=== PATIENT | female | born 1980 | race Two or more races ===

== ENCOUNTER 2024-05-13 19:16 | Emergency (ER) | payer MEDICAID, OTHER ==
[~2024-05-13] VITALS: Ht 167.6 cm; Wt 92.1 kg
[2024-05-13 19:42] VITALS: BP 138/42; PULSE 75; RESP 18; TEMP 97.1; O2SAT 98
--- NOTE | 2024-05-13 20:00 | ED.PDOC ---
History of Present Illness HPI Comments This patient is a morbidly obese 43-year-old female who arrives the ED today for evaluation of left-sided nephrostomy tube. Patient states that she has a tube placed approximately one month ago [facility]. When I inquired as to the course of the tube and when it is to be removed, patient states she was given no information and has not been able to follow up with the primary care provider. Patient states that earlier today she accidentally caught the tube and pulled on it. Subsequent to that event, patient states that the tube as not been functioning. Patient denies any additional pain of the site. Patient denies any fever nausea or vomiting. Vital signs were stable on arrival. Chief Complaint: Tube Replacement Time Seen by MD: 19:59 Reviewed Notes: Nurses Notes, Medications, Allergies Allergies: Coded Allergies: Ciprofloxacin (Verified Allergy, Unknown, 05/13/24) Information Source: Patient Mode of Arrival: Ambulatory Severity: Moderate Timing: Hours Duration: Since onset Prehospital treatment: None Past Medical History PAST MEDICAL HISTORY: Denies Past Medical History (Other): Nephrostomy tube placed one month ago Surgical History: Denies all surgeries NON CDL DRIVER History: No Pertinent NON CDL DRIVER History Family History Family History: Reviewed,noncontributory to illness, No family hx of Cancer, No family hx of DM, No family hx of Heart anabella, No family hx of HTN, No family hx ofKidney anabella, No family hx of Liver anabella, No family hx of Lung anabella, No family hx of Stroke Social History Smoker: Non-Smoker Alcohol: Denies ETOH Use Drugs: Denies Drug Use Lives In: Home Constitutional: denies: chills, diaphoresis, fatigue, fever, malaise, sweats, weakness, others EENTM: denies: blurred vision, double vision, ear bleeding, ear discharge, ear drainage, ear pain, ear ringing, eye pain, eye redness, hearing loss, mouth pain, mouth swelling, nasal discharge, nose bleeding, nose congestion, nose pain, photophobia, tearing, throat pain, throat swelling, voice changes, others Respiratory: denies: cough, hemoptysis, orthopnea, SOB at rest, shortness of breath, SOB with excertion, stridor, wheezing, others Cardiovascular: denies: chest pain, dizzy spells, diaphoresis, Dyspnea on ex ertion, edema, irregular heart beat, left arm pain, lightheadedness, palpitations, PND, syncope, others Gastrointestinal: denies: abdomen distended, abdominal pain, blood streaked bowels, constipated, diarrhea, dysphagia, difficulty swallowing, hematemesis, melena, nausea, poor appetite, poor fluid intake, rectal bleeding, rectal pain, vomiting, others Genitourinary: reports: others (Displaced left-sided nephrostomy tube); denies: abnormal vagina bleeding, burning, dyspareunia, dysuria, flank pain, frequency, hematuria, incontinence, pain, , vagina discharge, urgency Neurological: denies: dizziness, fainting, headache, left sided numbness, left sided weakness, numbness, paresthesia, pre-existing deficit, right sided numbness, right sided weakness, seizure, speech problems, tingling, tremors, weakness, others Musculoskeletal: denies: back pain, gout, joint pain, joint swelling, muscle pain, muscle stiffness, neck pain, others Integumetry: denies: bruises, change in color, change in hair/nails, dryness, laceration, lesions, lumps, rash, wounds, others Allergic/Immunocompromised: denies: Difficulty Healing, Frequent Infections, Hives, Itching, others Hematologic/Lymphatic: denies: anemia, blood clots, easy bleeding, easy bruising, swollen glands, others Endocrine: denies: excessive hunger, excessive sweating, excessive thirst, excessive urination, flushing, intolerance to cold, intolerance to heat, unexplained weight gain, unexplained weight loss, others Psychiatric: denies: anxiety, bipolar disorder, depression, hopeless, panic disorder, schizophrenia, sleepless, suicidal, others All Other Systems: Reviewed and Negative (see HPI) Physical Exam General Appearance: Mild Distress (Due to anxiety related to the nonfunctioning of her nephrostomy tube), Normal HEENT: Normal ENT Inspection, Pharynx Normal, TMs Normal Neck: Full Range of Motion, Non-Tender, Normal, Normal Inspection Respiratory: Chest Non-Tender, Lungs Clear, No Accessory Muscle Use, No Respiratory Distress, Normal Breath Sounds Cardiovascular: No Edema, No JVD, No Murmur, No Gallop, Normal Peripheral Pulses, Regular Rate/Rhythm Breast Exam: Deferred Gastrointestinal: Other (Patient has a left-sided nephrostomy tube in place. No signs of infection. No erythema or edema.) Genitalia: Deferred Pelvic: Deferred Rectal: Deferred Extremities: No calf tenderness, Normal capillary refill, Normal inspection, Normal range of motion, Non-tender, No pedal edema Neurologic: Alert, No Motor Deficits, Normal Affect, Normal Mood, No Sensory Deficits Cerebellar Function: Normal Reflexes: Normal Skin: Dry, Normal Color, Warm Lymphatic: No Adenopathy Was a procedure done? Was a procedure done?: No Differential Dx Considerations may include: cellutis, nephrostomy tube dislodged, X-Ray, Labs, Meds, VS Vital Signs Date Time Temp Pulse Resp B/P (MAP) Pulse Ox O2 Delivery O2 Flow Rate FiO2 05/13/24 19:42 97.1 75 18 138/42 (74) 98 97.1 X-Ray, Labs, Meds, VS Comment At arrival, I advised the patient that I would evaluate the nephrostomy tube as she may require intervention. I requested basic laboratories as well as imaging studies to ascertain placement of the nephrostomy tube, but imaging and nursing states the patient appears to have eloped from the facility. Time of 1ST Reevaluation: 21:05 Reevaluation 1ST: Unchanged Consultation: PCP, Other (Nephrology) Patient Education/Counseling: Diagnosis, Treatment Family Education/Counseling: Diagnosis, Treatment, No Family Present Departure 1 Departure Time of Disposition: 21:05 Impression: Primary Impression: Nephrostomy complication Disposition: 07 LEFT AWOL/ELOPED Condition: Fair Discharged With: Self Critical Care Note Critical Care Time?: No Stability Stability form required: No Heart Score Heart Score: Heart Score Response (Comments) Value History N/A 0 EKG N/A 0 Age N/A 0 Risk Factors N/A 0 Troponin N/A 0 Total 0 I personally scribed for SANKET NIETO PAC ([email or web address]) on 05/13/24 at 20:00. Electronically submitted by Og Pinzon ([email or web address]). SANKET NIETO PAC May 13, 2024 20:00
== END 2024-05-13 20:40 | disposition left against medical advice (07) ==
LOC: ER 19:16
DX: T83.89XA Other specified complication of genitourinary prosthetic devices, implants and grafts, initial encounter (principal); Z88.1 Allergy status to other antibiotic agents; Y92.89 Other specified places as the place of occurrence of the external cause